=== PATIENT | male | born 1995 | race Caucasian/White ===

== ENCOUNTER 2023-02-16 11:48 | Emergency (ER) | payer SELFPAY ==
--- NOTE | ~2023-02-16 | CT_ITS ---
EXAMINATION: CT facial bones wo con DATE: 02/16/2023 12:43 INDICATION: Trauma to the face TECHNIQUE: Computed tomography (CT) of the facial bones and maxillofacial region was performed withou t intravenous contrast. Coronal reconstructions were obtained. Automated exposure control and iterati ve reconstruction technique were employed. The dose-length product was 366.92 mGy-cm. COMPARISON: None. FINDINGS: Soft tissue swelling and small skin laceration at the lateral aspect of the left supraorbital rim. No maxillofacial fractures. Specifically the nasal bones, gamez of the orbits and paranasal sinuses, zy gomatic arch, mandible and pterygoid plates are all intact. Mild leftward deviation of the nasal sept um with left-sided nasal spike of which conform to the contours of the turbinates and is likely devel opmental. Mild mucosal thickening in the left maxillary sinus. Orbits are normal with intact appearin g globes and no post septal inflammatory stranding. Mastoid air cells and middle ear cavities are song ar. IMPRESSION: 1. No maxillofacial fractures. Reviewed, dictated and finalized at location A.
[2023-02-16 12:00] VITALS: BP 137/88; PULSE 68; RESP 16; TEMP 36.4; O2SAT 99
--- NOTE | 2023-02-16 12:39 | PC.NURSE ---
pt in CT at this time.
[2023-02-16] MEDS: LIDOCAINE, EPINEPHRINE, TETRACAINE VISCOUS SOLN 3 ML TOPICAL (12:44)
--- NOTE | 2023-02-16 13:50 | ED.WOUNDLAC ---
HPI - Wound/Laceration General Chief Complaint: Wound/Laceration Stated Complaint: DRILL VS FACE Time Seen by Provider: 02/16/23 12:06 History of Present Illness HPI narrative: This is a 27-year-old male with no significant past medical history, presenting to the emergency department after being struck in the face with a drill. The patient states he was drilling an object at eye level, when it slipped spun and hit him in the head. He suffered a laceration over the left eye and a bruise to the nose. He denies pain, loss of consciousness, weakness/numbness, nausea or vomiting. Related Data Allergies Allergy/AdvReac Type Severity Reaction Status Date / Time No Known Allergies Allergy Verified 02/16/23 12:06 Review of Systems Review of Systems: CONSTITUTIONAL: Denies fever, chills, or sweats. EYES: Denies visual changes, redness, or discharge. ENT: Denies rhinorrhea, congestion, sore throat, or otalgia. CARDIOVASCULAR: Denies chest pain, palpitations, or edema. RESPIRATORY: Denies cough or dyspnea. GASTROINTESTINAL: Denies abdominal pain, nausea, vomiting, or diarrhea. GENITOURINARY: Denies dysuria or hematuria. SKIN: Laceration of the left eyebrow denies rash or itching. MUSCULOSKELETAL: Denies back pain, joint pain, or myalgia. NEUROLOGIC: Denies headache, numbness, dizziness, or weakness. PSYCHIATRIC: Denies anxiety or depression. PMFSH Past Medical History Medical History (Updated 02/16/23 @ 20:39 by Saud Angel MD) No significant past medical history Surgical History Surgical History (Updated 02/16/23 @ 20:39 by Saud Angel MD) No significant past surgical history Social History Social History (Updated 02/16/23 @ 20:40 by Saud Angel MD) Smoking status: Never smoker Alcohol intake: current Substance use: never Exam Narrative: GENERAL: Well-developed, well-nourished, and in no acute distress. HEAD: Normocephalic, a T shaped laceration is noted over the superior lateral border of the left eyebrow, measuring approximately 1-1/2 x 0.5 cm EYES: PERRLA and EOMI. ENT: Nares clear, no rhinorrhea or epistaxis. Mucous membranes moist. Oropharynx without tonsillar hypertrophy exudate or other lesions. NECK: Supple. No adenopathy or masses. No midline spine tenderness to palpation, no step-off or crepitus CHEST: Clear to auscultation. No respiratory distress. No wheezes rales or rhonchi HEART: Regular rate and rhythm. No murmur heard. Normal peripheral pulses. ABDOMEN: Soft, nontender, nondistended, normal active bowel sounds. BACK: No midline spine tenderness to palpation, no step-off or crepitus EXTREMITIES: Normal range of motion. No edema. SKIN: Laceration as above, a an abrasion is noted at the left lateral aspect of the nose. Skin otherwise warm, dry, no rash. NEURO: No focal deficits. Alert and oriented x3. PSYCH: Normal mood and affect. Course Course Emergency Course: 13:40 - Laceration repaired by me. Please see procedure note. Will discharge with recommendation for wound care and primary care follow-up. Discussed return and emergency precautions including signs/symptoms of wound infection and intracranial hemorrhage. The patient voiced understanding and is comfortable with the plan. All questions answered to his satisfaction. Vital Signs Vital signs: Vital Signs Temperature 97.6 F 02/16/23 12:00 Pulse Rate 68 02/16/23 12:00 Respiratory Rate 16 02/16/23 12:00 Blood Pressure 137/88 02/16/23 12:00 Pulse Oximetry 99 02/16/23 12:00 Oxygen Delivery Room Air 02/16/23 12:00 Temperature 97.6 F 02/16/23 12:00 Pulse Rate 68 02/16/23 12:00 Respiratory Rate 16 02/16/23 12:00 Blood Pressure 137/88 02/16/23 12:00 Pulse Oximetry 99 02/16/23 12:00 Oxygen Delivery Room Air 02/16/23 12:00 Procedures Laceration Laceration 1: Date: 02/16/23 Time: 13:40 Site: face Side (If applicable): left
[2023-02-16] MEDS: TETANUS,DIPHTHERIA,AC PERTUSSIS ADULT (0.5 ML) BOOSTRIX IM (14:03)
== END 2023-02-16 14:08 | disposition home or self-care (01) ==
PROVIDERS: Emergency Provider Preventive Medicine Aerospace Medicine
DX: S01.112A Laceration without foreign body of left eyelid and periocular area, initial encounter (principal); W29.8XXA Contact with other powered hand tools and household machinery, initial encounter; Z23 Encounter for immunization
CPT/HCPCS: 12011; 70486; 90471; 90715; 99284